=== PATIENT | female | born 1970 | race Caucasian/White ===

== ENCOUNTER → 2023-11-02 | Outpatient (CLI) | payer BC ==
[~2023-11-02] MED LIST: CLEOCIN HCL300 MG PO; NAPROSYN500 MG PO; PERCOCET 325 MG1 TA2 PO
== END | disposition home or self-care (01) ==
LOC: MAMMO 10:25
PROVIDERS: ATTEND Family Medicine
DX: Z12.31 Encounter for screening mammogram for malignant neoplasm of breast (principal)